=== PATIENT | female | born 1950 | race Caucasian/White ===

== ENCOUNTER 2018-05-10 19:01 | Inpatient (IN) | payer MEDICARE, SELFPAY ==
[2018-05-10] VITALS (11 sets, daily range): BP systolic 118–149; BP diastolic 71–99; PULSE 63–86; RESP 14–16; TEMP 36.6–36.9; O2SAT 96–100; BMI 20.5; BMI 20.8
--- NOTE | 2018-05-10 19:20 | RAD_ITS ---
STUDY: X-RAY CHEST REASON FOR EXAM: Female, 67 years old. Nausea and chest pain TECHNIQUE: Single AP portable view of the chest. COMPARISON: None. FINDINGS: security monitor leads are present. The lungs are clear and expanded. There is no demonstrated pleural abnormality. Normal size heart. Normal mediastinum and aliyah. Normal visualized pulmonary arteries. Normal visualized aortic arch and descending thoracic aorta. Normal visualized thoracic spine. Normal visualized ribs, clavicles, and shoulders. There is no demonstrated abnormality of the visualized soft tissue structures of the upper abdomen. RAD/Chest 1 View (Portable) IMPRESSION: Normal x-ray examination of the chest. Electronically Signed: Peewee Camacho MD at 19:45 EDT , Service support ,
--- NOTE | 2018-05-10 19:20 | EKG12_ITS ---
Test Reason : CP Blood Pressure : / mmHG Vent. Rate : 084 BPM Atrial Rate : 084 BPM P-R Int : 138 ms QRS Dur : 088 ms QT Int : 364 ms P-R-T Axes : 080 061 062 degrees QTc Int : 430 ms Normal sinus rhythm Possible Left atrial enlargement Junctional ST depression, probably normal Borderline ECG Confirmed by BEBA JERNIGAN, MARILOU ([id number]), supervising editor news reel SWAPNIL WHALEN ([id number]) on 05/12/2018 3:29:01 PM Referred By: PETEY/HERMANN Confirmed By:MARILOU YODER MD
[2018-05-10] MEDS: 0.9% Normal Saline 1,000 ML 150 ML IV (19:28)
[2018-05-10 19:37] LABS: Absolute Lymphocyte Count 3.68 X10^3/ul (0.83-4.51); Absolute Neutrophil Count 4.3 X10^3/uL (2.0-7.7); Basophil# 0.02 X10^3/uL; Basophil% 0.2 % (0-1); Eosinophil# 0.21 X10^3/uL; Eosinophils% 2.4 % (0-5); Hematocrit 38.9 % (37-47); Lymphocyte # 3.68 X10^3/ul (4.0); Lymphocyte % 42.3 % (19-41); Mean Corp Hgb Conc 33.4 g/gl (32-36); Mean Corpuscular Hgb 32.3 pg (27.0-32.0); Mean Corpuscular Volume 96.8 fL (81-99); Mean Platelet Vol. 9.1 fl (6.2-12.0); Monocyte% 5.7 % (0-10); Neutrophil # 4.29 X10^3/uL (2.7-7.7); Neutrophil % 49.3 % (47-70); Platelet Count 264 K/mm3 (150-450); RBC Distribution Width CV 12.3 % (11.6-14.6); RBC Distribution Width SD 43.6 fl (35.1-43.9); Red Blood Count 4.02 M/mm3 (4.2-5.4); White Blood Count 8.7 K/mm3 (4.4-11.0)
[2018-05-10 19:38] LABS: POSITIVE COUNT NO; POSITIVE DIFFERENTIAL NO; POSITIVE MORPHOLOGY NO
[2018-05-10 19:47] LABS: Anion Gap 5 (5-15); BUN 19 mg/dL (7-18); Calcium,Total 8.9 mg/dL (8.5-10.1); Chloride 107 mmol/L (98-107); Creatinine, Serum 0.79 mg/dL (0.55-1.02); EST Glomerular Filtration Rate 77 mL/min (>60); Est Glom Filt Rate - Afr Amer 93 mL/min (>60); Estimated Creatinine Clearance 45.16 ml/min; Glucose 123 mg/dL (74-106); Potassium 3.6 mmol/L (3.5-5.1); Sodium Level 141 mmol/L (136-145)
--- NOTE | 2018-05-10 20:03 | ED.DCSUM_ITS ---
- ER Visit Summary Date of Service: 05/10/18 Chief Complaint: Chest pain [] History of Present Illness: The patient is a 67 F [presents the emergency department complaint of chest pain that started 4 days ago. Patient's had intermittent episodes of pain that radiate up into her jaw and into both arms. Patient yesterday had a sensation in her left chest that felt like a pop and then developed discomfort in the right chest as well. She has had some mild dull aching in her right chest that is been continuous since that time. Patient feels like maybe her chest pain is worsened by activity. Past medical history significant for high cholesterol. Patient's never had a heart attack or cardiac stents.] Physical Examination: [HEENT-PERRLA, EOMI. Cranial nerves II through XII grossly intact. TMs clear. Mucous membranes moist. No adenopathy. Cardiovascular-regular rate and rhythm without murmur or ectopy Lungs-clear to auscultation, chest wall stable without crepitus or subcu emphysema Abdomen-normoactive bowel sounds, soft, nontender, no rebound or rigidity, no peritoneal signs. Extremities-intact ?4, normal range of motion, normal pulses, atraumatic] Test Results: [EKG obtained arrival shows sinus rhythm with a ventricular rate of 84 bpm with some nonspecific ST changes noted.] CBC with differential was normal. Chemistries unremarkable. Troponin was less than 0.015. D-dimer was normal at 0.3. Chest x-ray was normal. Emergency Department Course and Treatment: [Patient had taken 2 full doses of aspirin at home. Patient was given sublingual nitro here she is not sure it helped her discomfort much.] Treatment Plan: [Admit for further workup and evaluation] Disposition: [Admit] Impression: [Chest pain-rule out acute coronary syndrome] This note was generated with [employer] dictation software. It may contain incorrect words, spelling, and punctuation that were not noted in review of the chart prior to signing ED Disposition - Plan for ED Patient: Chief Complaint: Chest Pain Referrals: Marv Brownlee DO [Primary Care Provider] -
--- NOTE | 2018-05-10 20:03 | HP.PCM_ITS ---
Problem List (1) Chest pain Status: Acute History of Present Illness Date of Admission: 05/10/18 Chief Complaint: chest pain The patient is a 67 year old [employer] female with a history of hyperlipidemia which is diet controlled. She was admitted with a 1 day history of chest pain. Chest pain was left-sided, sharp and she felt like something had burst in her chest. She had associated lightheadedness and shortness of breath but denied any dizziness or palpitations. On further probing, patient states that she went to [place] for holiday this week and was a 4-1/[address] and for [address]. She was experiencing such chest pain on the right but did not think much of it and actually said that she had had some episodic chest pain even before she went to [place]. However symptoms worsened yesterday and so she decided to come into the hospital. She has a strong family history of DVT and PE with her brother having had a DVT according to after surgery and her mother having had multiple DVTs and PEs which she states was after surgery 2. In the ED, vitals were significant for blood pressure 147/88 on admission with pulse rate of 66, temperature of 97.8 and respiratory rate of 16. She was saturating at 97% on room air. Chest x-ray showed no acute cardiopulmonary process. Dimer was 0.37. Patient has been admitted to be managed for chest pain [] Past Medical History Allergies Bleach (Sodium Hypochlorite) Adverse Reaction (Verified 05/10/18 19:28) Other Home Medications: Ambulatory Orders Medication Instructions Recorded Aspirin [Aspirin EC] 81 mg PO DAILY 05/10/18 Lutein 20 mg PO DAILY 05/10/18 Multivitamin [Daily Multiple 1 each PO DAILY 05/10/18 Vitamin] [place]-3 Fatty Acids/Fish Oil 1 each PO DAILY 05/10/18 [[place] 3 1,000 mg Softgel] Red Yeast Rice 600 mg PO DAILY 05/10/18 Surgical History: no surgical history Psychiatric History: No pertinent psych hx CRIME VICTIM SPECIALIST History: No pertinent CRIME VICTIM SPECIALIST history Smoking Status: Never smoker Alcohol: None - *Family History Maternal History Items: Diabetes, DVT - and PE, Heart Disease, Hypertension Sibling History Items: DVT - brother Paternal History Items: Diabetes Review of Systems Constitutional: Denies: Chills, Fever, Weight Change Eyes: Denies: Blurred vision HEENT: Denies: Head Aches, Sinus Congestion, Sinus Drainage Cardiovascular: Reports: Chest Pain, Palpitations. Denies: Chest Pressure, Chest Tightness, Edema, Orthopnea, Paroxysmal Noc. Dyspnea, Syncope Respiratory: Denies: Cough, Shortness of Breath, Shortness of breath at rest, Sputum production Gastrointestinal: Denies: Abdominal Pain, Nausea, Vomiting Genitourinary: Denies: Dysuria Musculoskeletal: Denies: Joint Pain, Joint Tenderness Skin: Denies: Rash, Wounds Neurological: Denies: Numbness, Tingling, Focal weakness Psychiatric: Denies: Anxiety, Depression, Homicidal Ideations, Suicidal Ideations Hematologic/ Lymphatic: Denies: Easy Bruising, Easy Bleeding VTE Information - Inpt Only VTE Present on Admission: No VTE Mechan Device Prophylaxis: SCD's VTE Pharm Prophylaxis ordered?: Yes Patient Problems: Active and Suspected Problems Chest pain (Acute) - Physical Exam General: Alert, Oriented x3, Cooperative, No apparent distress HEENT: Atraumatic, PERRLA, EOMI, Normocephalic Oral: Moist Mucosa Neck: Supple, No JVD, Negative Carotid Bruits Lungs: Clear to auscultation, Normal air movement, No rhonchi, No wheeze, No rales Cardiovascular: Regular rate, Regular Rhythm, Normal S1, Normal S2, No murmurs Abdomen: Bowel Sounds Present, Soft, Non Tender, Non-Distended, No Hepato- splenomegaly Extremities: No clubbing, No cyanosis, No edema, Capillary Refill Less than 3 Seconds Skin: No rashes, No breakdown Musculoskeletal: No Tenderness to Palpation of Joints or Extremities Lymphatic: No Cervical, Supraclavicular, or Inguinal Adenopathy Neurological: Cranial nerves II-XII grossly intact, Neuro grossly intact, Motor Exam 5/5 strength throughout Psych/Mental Status: Normal Affect, Appropriate, Alert and oriented to time, place, person, mood and affect Vital Signs Temp Pulse Resp BP Pulse Ox 97.8 F 72 16 132/86 H 100 05/10/18 19:03 05/10/18 19:30 05/10/18 19:07 05/10/18 19:30 05/10/18 19:22 Oxygen Delivery Method Room Air Weight: 115 lb 8.505 oz Body Mass Index (BMI) 20.5 Laboratory Tests Past 24 Hrs 05/10/18 05/10/18 05/10/18 19:10 19:10 19:10 WBC 8.7 RBC 4.02 L Hgb 13.0 Hct 38.9 MCV 96.8 MCH 32.3 H MCHC 33.4 RDW 12.3 RDW Differential 43.6 Plt Count 264 MPV 9.1 Immature Gran % (Auto) 0.100 Neut % (Auto) 49.3 Lymph % (Auto) 42.3 H [place] % (Auto) 5.7 Eos % (Auto) 2.4 Baso % (Auto) 0.2 Absolute Neuts (auto) 4.3 Absolute Lymphs (auto) 3.68 Total Counted Not Reportable D-Dimer Quant (PE/DVT) 0.30 Sodium 141 Potassium 3.6 Chloride 107 Carbon Dioxide 29.0 Anion Gap 5 BUN 19 H Creatinine 0.79 Estim Creat Clear Calc 45.16 Est GFR (MDRD) Af Amer 93 Est GFR (MDRD) Non-Af 77 BUN/Creatinine Ratio 24.0 H Glucose 123 H Calcium 8.9 Troponin I < 0.015 Diagnostic Data Chest X-Ray 05/10/18 19:20 IMPRESSION: Normal x-ray examination of the chest. Electronically Signed: Peewee Camacho MD at 19:45 EDT , Service support , Assessment/Plan All Active Problems Chest pain (Acute) 67 y/o female presenting with a complaint of chest pain 1. Atypical cardiac chest pain * initial troponin negative; CXR was n ormal * initial D dimer was negative * however, patient has strong family history of DVT and PE in both mother and brother * WEll's score: * will get CTPE to rule out PE o/a of history of recent long distance travel and strong family history of DVT and PE * aspirin 81mg daily * SL nitroglycerin prn * stress test on Saturday if CTPE is negative * check lipid panel and A1C * 2. Hyperlipidemia: * says she is diet controlled. * check lipid panel * 3. DVT prophylaxis: heparin Code status; DNRCCA * counseled extensively about differences between full code, DNR CCA and DNR CCA. Patient has a document which states that she does not want any life prolonging measures and even states that she does not want antibiotics as well. However upon speaking to patient letting him know that the document that she had implied that she was DNR CC, patient stated that she was open to taking antibiotics but did not want any life prolonging measures such as intubation and CPR. Patient counseled that this indicated that her CODE STATUS was DNR CCA and patient assented to this. Code Visit OBSV E&M: 58328 Initial observation care L2 Procedures: 89329 Advncd Care Plan 30 Min
--- NOTE | 2018-05-10 20:36 | CT_ITS ---
STUDY: CTA CHEST REASON FOR EXAM: Female, 67 years old. RADIATION DOSAGE (If Supplied By Facility): CTDIvol = ( 6.27 ) mGy, DLP = ( 227.70 ) mGycm TECHNIQUE: The examination was performed with the intravenous administration of 75ml ml of Isovue 370 contrast material. Post-processing of the angiographic images was performed, with multiplanar reformation and 3D reconstruction. Individualized dose optimization techniques were used for this CT. COMPARISON: None. FINDINGS: The heart and pericardium are normal. The aorta is normal in caliber, with no aneurysm or dissection. There is no evidence of pulmonary embolus. Pulmonary arteries are unremarkable. There is extensive calcified mediastinal and left hilar adenopathy, consistent with old granulomatous disease. There is no pleural effusion. There is a calcified granuloma in the lingula. There is no pulmonary consolidation. No interstitial or cystic disease. Visualized abdomen is unremarkable. There is no osseous abnormality. CT/CTA Chest W/WO Contrast IMPRESSION: 1. No evidence of pulmonary embolus or aortic dissection. 2. Old granulomatous disease. Electronically Signed: Kirti Veliz MD at 21:41 EDT Tel , Service support ,
--- NOTE | 2018-05-10 22:22 | EKG12_ITS ---
Test Reason : CP Blood Pressure : / mmHG Vent. Rate : 061 BPM Atrial Rate : 061 BPM P-R Int : 118 ms QRS Dur : 082 ms QT Int : 390 ms P-R-T Axes : 065 053 055 degrees QTc Int : 392 ms Normal sinus rhythm Confirmed by SANTOS JERNIGAN, CIRA ([id number]), editor greeting card SWAPNIL WHALEN ([id number]) on 05/15/2018 11:40:37 AM Referred By: ISAAC Confirmed By:CIRA GRAHAM MD
[2018-05-11] VITALS (10 sets, daily range): BP systolic 113–119; BP diastolic 57–74; PULSE 59–86; RESP 14–16; TEMP 36.6–36.8; O2SAT 95–98
[2018-05-11] MEDS: 0.9% Normal Saline 1,000 ML 150 ML IV (01:02)
[2018-05-11 03:12] LABS: Hemoglobin A1c 5.2 % (4.2-6.3)
[2018-05-11 06:22] LABS: Absolute Lymphocyte Count 2.31 X10^3/ul (0.83-4.51); Absolute Neutrophil Count 2.7 X10^3/uL (2.0-7.7); Basophil# 0.04 X10^3/uL; Basophil% 0.7 % (0-1); Eosinophil# 0.27 X10^3/uL; Eosinophils% 4.6 % (0-5); Hematocrit 34.5 % (37-47); Hemoglobin 11.4 g/dl (12.0-15.0); Lymphocyte # 2.31 X10^3/ul (4.0); Lymphocyte % 39.8 % (19-41); Mean Corpuscular Hgb 32.2 pg (27.0-32.0); Mean Corpuscular Volume 97.5 fL (81-99); Monocyte# 0.46 X10^3/uL; Monocyte% 7.9 % (0-10); Neutrophil # 2.73 X10^3/uL (2.7-7.7); Platelet Count 231 K/mm3 (150-450); RBC Distribution Width CV 12.1 % (11.6-14.6); Red Blood Count 3.54 M/mm3 (4.2-5.4); White Blood Count 5.8 K/mm3 (4.4-11.0)
[2018-05-11 06:34] LABS: POSITIVE COUNT NO; POSITIVE DIFFERENTIAL NO; POSITIVE MORPHOLOGY NO
[2018-05-11 06:54] LABS: Cholesterol 179 mg/dL (200); High Density Lipoprotein 58 mg/dL; Triglycerides 66 mg/dL; Very Low Density Lipoprotein 13 mg/dL (5-40)
[2018-05-11 06:57] LABS: Anion Gap 8 (5-15); BUN 15 mg/dL (7-18); Calcium,Total 8.5 mg/dL (8.5-10.1); Chloride 111 mmol/L (98-107); Creatinine, Serum 0.52 mg/dL (0.55-1.02); EST Glomerular Filtration Rate 126 mL/min (>60); Est Glom Filt Rate - Afr Amer 152 mL/min (>60); Estimated Creatinine Clearance 45.16 ml/min; Glucose 85 mg/dL (74-106); Potassium 3.5 mmol/L (3.5-5.1); Sodium Level 145 mmol/L (136-145)
[2018-05-11] MEDS: Aspirin 81 MG TAB.CHEW PO (08:38)
[2018-05-11] MEDS: Enoxaparin 40 MG/0.4 ML Syringe SC (08:38)
--- NOTE | 2018-05-11 13:06 | PN_ITS ---
<Kate Mcnally - Last Filed: 05/11/18 13:06> Patient Problems: Active and Suspected Problems Chest pain (Acute) Subjective: Patient seen and examined. Ambulating in room. Complains of continued sporadic chest pain which resolves on its own. Patient reports this is not related to exertion. Denies associated symptoms including shortness of breath, palpitations, dizziness. - Physical Exam General: Alert, Oriented x3, Cooperative, No apparent distress HEENT: Atraumatic, PERRLA, EOMI, Normocephalic Neck: Supple, No JVD, Negative Carotid Bruits Lungs: Clear to auscultation, Normal air movement Cardiovascular: Regular rate, Regular Rhythm, Normal S1, Normal S2, No murmurs Abdomen: Bowel Sounds Present, Soft, Non Tender, Non-Distended Extremities: No clubbing, No cyanosis, No edema, Capillary Refill Less than 3 Seconds Skin: No rashes, No breakdown Musculoskeletal: No Tenderness to Palpation of Joints or Extremities Neurological: Cranial nerves II-XII grossly intact, Neuro grossly intact Psych/Mental Status: Normal Affect, Appropriate Vital Signs Temp Pulse Resp BP Pulse Ox 98.3 F 86 16 114/71 98 05/11/18 08:31 05/11/18 11:00 05/11/18 08:31 05/11/18 08:31 05/11/18 08:31 Oxygen Delivery Method Room Air Weight: 117 lb 8.102 oz Body Mass Index (BMI) 20.8 Intake and Output for Last 24 Hours 05/09/18 05/10/18 05/11/18 23:59 23:59 23:59 Intake Total 1144 / 1144 Balance 1144 / 1144 Laboratory Tests Past 24 Hrs 05/10/18 05/10/18 05/10/18 19:10 19:10 19:10 WBC 8.7 RBC 4.02 L Hgb 13.0 Hct 38.9 MCV 96.8 MCH 32.3 H MCHC 33.4 RDW 12.3 RDW Differential 43.6 Plt Count 264 MPV 9.1 Immature Gran % (Auto) 0.100 Neut % (Auto) 49.3 Lymph % (Auto) 42.3 H Stevens % (Auto) 5.7 Eos % (Auto) 2.4 Baso % (Auto) 0.2 Absolute Neuts (auto) 4.3 Absolute Lymphs (auto) 3.68 Total Counted Not Reportable D-Dimer Quant (PE/DVT) 0.30 Sodium 141 Potassium 3.6 Chloride 107 Carbon Dioxide 29.0 Anion Gap 5 BUN 19 H Creatinine 0.79 Estim Creat Clear Calc 45.16 Est GFR (MDRD) Af Amer 93 Est GFR (MDRD) Non-Af 77 BUN/Creatinine Ratio 24.0 H Glucose 123 H Hemoglobin A1c Calcium 8.9 Troponin I < 0.015 Triglycerides Cholesterol LDL Cholesterol VLDL Cholesterol HDL Cholesterol 05/10/18 05/10/18 05/11/18 19:10 22:35 01:06 WBC RBC Hgb Hct MCV MCH MCHC RDW RDW Differential Plt Count MPV Immature Gran % (Auto) Neut % (Auto) Lymph % (Auto) Stevens % (Auto) Eos % (Auto) Baso % (Auto) Absolute Neuts (auto) Absolute Lymphs (auto) Total Counted D-Dimer Quant (PE/DVT) Sodium Potassium Chloride Carbon Dioxide Anion Gap BUN Creatinine Estim Creat Clear Calc Est GFR (MDRD) Af Amer Est GFR (MDRD) Non-Af BUN/Creatinine Ratio Glucose Hemoglobin A1c 5.2 Calcium Troponin I < 0.015 < 0.015 Triglycerides Cholesterol LDL Cholesterol VLDL Cholesterol HDL Cholesterol 05/11/18 05/11/18 05/11/18 06:00 06:00 06:00 WBC 5.8 RBC 3.54 L Hgb 11.4 L Hct 34.5 L MCV 97.5 MCH 32.2 H MCHC 33.0 RDW 12.1 RDW Differential 41.0 Plt Count 231 MPV 9.0 Immature Gran % (Auto) 0.000 Neut % (Auto) 47.0 Lymph % (Auto) 39.8 Stevens % (Auto) 7.9 Eos % (Auto) 4.6 Baso % (Auto) 0.7 Absolute Neuts (auto) 2.7 Absolute Lymphs (auto) 2.31 Total Counted Not Reportable D-Dimer Quant (PE/DVT) Sodium 145 Potassium 3.5 Chloride 111 H Carbon Dioxide 26.0 Anion Gap 8 BUN 15 Creatinine 0.52 L Estim Creat Clear Calc 45.16 Est GFR (MDRD) Af Amer 152 Est GFR (MDRD) Non-Af 126 BUN/Creatinine Ratio 29.0 H Glucose 85 Hemoglobin A1c Calcium 8.5 Troponin I Triglycerides 66 Cholesterol 179 LDL Cholesterol 108 VLDL Cholesterol 13 HDL Cholesterol 58 Medical Necessity - Tobacco Use Smoking Status: Never smoker Assessment/Plan All Active Problems Chest pain (Acute) 1. Atypical chest pain-troponin negative. EKG without ST-T changes. Stress test scheduled for morning. Continue aspirin. D-dimer within normal limits. Chest CTA showed no evidence of pulmonary embolism or aortic dissection. 2. Hyperlipidemia- FLP within normal limits. Continue omega 3 supplementation at discharge. DVT prophylaxis-heparin subcu per This patient was seen by OLYA Heller under the supervision of Dr. Jay. <Mike Jay - Last Filed: 05/11/18 16:23> Subjective: Seen and examined. Very pleasant patient. She denies history of previous cardiopulmonary disease. Denies DC, arrhythmia or heart failure. Patient said she had childhood history murmur secondary to possible rheumatic heart disease but grew out of it - Physical Exam General: Alert, Oriented x3, Cooperative HEENT: Atraumatic, PERRLA, EOMI, Normocephalic Neck: Supple, No JVD, Negative Carotid Bruits Lungs: Clear to auscultation, Normal air movement Cardiovascular: Regular rate, Regular Rhythm, Normal S1, Normal S2, No murmurs Abdomen: Bowel Sounds Present, Soft, Non Tender Extremities: No edema, Capillary Refill Less than 3 Seconds Skin: No rashes, No breakdown Musculoskeletal: No Tenderness to Palpation of Joints or Extremities Neurological: Cranial nerves II-XII grossly intact Psych/Mental Status: Normal Affect, Appropriate Vital Signs Temp Pulse Resp BP Pulse Ox 97.9 F 61 16 119/69 98 05/11/18 15:30 05/11/18 15:30 05/11/18 15:30 05/11/18 15:30 05/11/18 15:30 Oxygen Delivery Method Room Air Weight: 117 lb 8.102 oz Body Mass Index (BMI) 20.8 Intake and Output for Last 24 Hours 05/09/18 05/10/18 05/11/18 23:59 23:59 23:59 Intake Total 1144 / 1144 Balance 1144 / 1144 Laboratory Tests Past 24 Hrs 05/10/18 05/10/18 05/10/18 19:10 19:10 19:10 WBC 8.7 RBC 4.02 L Hgb 13.0 Hct 38.9 MCV 96.8 MCH 32.3 H MCHC 33.4 RDW 12.3 RDW Differential 43.6 Plt Count 264 MPV 9.1 Immature Gran % (Auto) 0.100 Neut % (Auto) 49.3 Lymph % (Auto) 42.3 H Stevens % (Auto) 5.7 Eos % (Auto) 2.4 Baso % (Auto) 0.2 Absolute Neuts (auto) 4.3 Absolute Lymphs (auto) 3.68 Total Counted Not Reportable D-Dimer Quant (PE/DVT) 0.30 Sodium 141 Potassium 3.6 Chloride 107 Carbon Dioxide 29.0 Anion Gap 5 BUN 19 H Creatinine 0.79 Estim Creat Clear Calc 45.16 Est GFR (MDRD) Af Amer 93 Est GFR (MDRD) Non-Af 77 BUN/Creatinine Ratio 24.0 H Glucose 123 H Hemoglobin A1c Calcium 8.9 Troponin I < 0.015 Triglycerides Cholesterol LDL Cholesterol VLDL Cholesterol HDL Cholesterol 05/10/18 05/10/18 05/11/18 19:10 22:35 01:06 WBC RBC Hgb Hct MCV MCH MCHC RDW RDW Differential Plt Count MPV Immature Gran % (Auto) Neut % (Auto) Lymph % (Auto) Stevens % (Auto) Eos % (Auto) Baso % (Auto) Absolute Neuts (auto) Absolute Lymphs (auto) Total Counted D-Dimer Quant (PE/DVT) Sodium Potassium Chloride Carbon Dioxide Anion Gap BUN Creatinine Estim Creat Clear Calc Est GFR (MDRD) Af Amer Est GFR (MDRD) Non-Af BUN/Creatinine Ratio Glucose Hemoglobin A1c 5.2 Calcium Troponin I < 0.015 < 0.015 Triglycerides Cholesterol LDL Cholesterol VLDL Cholesterol HDL Cholesterol 05/11/18 05/11/18 05/11/18 06:00 06:00 06:00 WBC 5.8 RBC 3.54 L Hgb 11.4 L Hct 34.5 L MCV 97.5 MCH 32.2 H MCHC 33.0 RDW 12.1 RDW Differential 41.0 Plt Count 231 MPV 9.0 Immature Gran % (Auto) 0.000 Neut % (Auto) 47.0 Lymph % (Auto) 39.8 Stevens % (Auto) 7.9 Eos % (Auto) 4.6 Baso % (Auto) 0.7 Absolute Neuts (auto) 2.7 Absolute Lymphs (auto) 2.31 Total Counted Not Reportable D-Dimer Quant (PE/DVT) Sodium 145 Potassium 3.5 Chloride 111 H Carbon Dioxide 26.0 Anion Gap 8 BUN 15 Creatinine 0.52 L Estim Creat Clear Calc 45.16 Est GFR (MDRD) Af Amer 152 Est GFR (MDRD) Non-Af 126 BUN/Creatinine Ratio 29.0 H Glucose 85 Hemoglobin A1c Calcium 8.5 Troponin I Triglycerides 66 Cholesterol 179 LDL Cholesterol 108 VLDL Cholesterol 13 HDL Cholesterol 58 Assessment/Plan This patient was seen in conjunction with [facility]. I have independently interviewed and examined the patient and reviewed pertinent history, examination findings, laboratory and plan of management. I have reviewed the note and agree with the documented findings with the few additional points. In brief, patient is admitted for atypical chest pain. Initial lab evaluation, EKG and imaging testing including CTA negative for PE, aortic dissection or other significant cause of chest pain. Patient want to do treadmill nuclear stress test and is scheduled for tomorrow. I have discussed my assessment with Kate APARICIO and orders have been reviewed. Code Visit OBSV E&M: 40730 Subsequent observation care L2
[2018-05-12 03:00] VITALS: PULSE 66
[2018-05-12 03:30] VITALS: BP 109/70; PULSE 60; RESP 14; TEMP 36.7; O2SAT 96
[2018-05-12 03:56] LABS: International Normalized Ratio 1.2; Prothrombin Time (Protime)PT. 14.7 SECONDS (11.7-14.9)
[2018-05-12 03:57] LABS: Partial Thromboplast Time 32.1 Seconds (24.1-36.2)
[2018-05-12 04:08] LABS: Hemoglobin 12.1 g/dl (12.0-15.0); Mean Corp Hgb Conc 33.6 g/gl (32-36); Mean Corpuscular Hgb 32.3 pg (27.0-32.0); Mean Platelet Vol. 9.2 fl (6.2-12.0); Platelet Count 223 K/mm3 (150-450); RBC Distribution Width CV 12.4 % (11.6-14.6); RBC Distribution Width SD 43.2 fl (35.1-43.9); Red Blood Count 3.75 M/mm3 (4.2-5.4); White Blood Count 5.5 K/mm3 (4.4-11.0)
[2018-05-12 04:15] LABS: Scan Indicated on CBC? Y/N NO
[2018-05-12 04:23] LABS: Anion Gap 8 (5-15); BUN 18 mg/dL (7-18); BUN/Creat Ratio 30.3 RATIO (10-20); Calcium,Total 8.9 mg/dL (8.5-10.1); Chloride 109 mmol/L (98-107); EST Glomerular Filtration Rate 107 mL/min (>60); Est Glom Filt Rate - Afr Amer 129 mL/min (>60); Estimated Creatinine Clearance 45.16 ml/min; Glucose 89 mg/dL (74-106); Potassium 3.6 mmol/L (3.5-5.1); Sodium Level 144 mmol/L (136-145)
--- NOTE | 2018-05-12 05:55 | EKG12_ITS ---
Test Reason : AM EKG Blood Pressure : / mmHG Vent. Rate : 063 BPM Atrial Rate : 063 BPM P-R Int : 138 ms QRS Dur : 094 ms QT Int : 392 ms P-R-T Axes : 080 057 060 degrees QTc Int : 401 ms Normal sinus rhythm Normal ECG Confirmed by SANTOS JERNIGAN, CIRA ([id number]), index editor SWAPNIL WHALEN ([id number]) on 05/15/2018 11:37:33 AM Referred By: NICOLE Confirmed By:CIRA GRAHAM MD
[2018-05-12] MEDS: Aspirin 81 MG TAB.CHEW PO (06:00)
[2018-05-12 09:29] VITALS: BP 115/61; PULSE 63; RESP 16; TEMP 36.8; O2SAT 98
--- NOTE | 2018-05-12 10:20 | STRESSREP_ITS ---
Stress Test Report Exercise myocardial perfusion stress test. 67-year-old lady with a history of chest pain. Stress protocol: Resting EKG demonstrates normal sinus rhythm with a rate of 69 bpm normal intervals are noted. The patient exercised according to regular Irvin protocol for total duration of 7 minutes the maximum heart rate attained was 146 bpm w hich was 95% maximum predicted heart rate the maximum workload was 8.5 metabolic equivalents. At rest there were no ST or T wave changes noted suggest ischemia at peak exercise upsloping ST changes only were noted with no meet the criteria for ischemia. No clinical angina was noted no arrhythmias were noted the resting blood pressure is 130/92 with a peak blood pressure 160/90 mmHg. Myocardial perfusion protocol. 11.1 mCi of technetium 99m sestamibi was injected at rest. Patient exercised according to regular Irvin protocol for 7 minutes. At peak exercise 33.7 mCi of technetium 99m sestamibi was injected stress images were obtained stress and rest images were reconstructed and compared in the short axis vertical long horizontal long axis. Gated images were also obtained Perfusion SPECT analysis: Review of the stress images demonstrate normal uptake of tracer noted in all areas of the myocardium. The resting images similarly demonstrate normal uptake of tracer noted in all areas of the myocardium. No areas of reversibility are noted suggest ischemia. Gated SPECT analysis: The gated ejection fraction is noted to be 89%. Conclusion: Normal exercise myocardial perfusion stress test at a moderate workload. Good functional capacity. Preserved ejection fraction.
--- NOTE | 2018-05-12 10:30 | PCM.DC ---
- Discharge Diagnoses Current Active Problems: Current Active and Chronic Problems Chest pain (Acute) You will use the following diet at home:: No restrictions Discharge Activity: Return to Normal Activity Call your doctor if you observe: Shortness of breath, Dizziness, Fainting spells, Chest pain Allergies/Adverse Reactions: Allergies Bleach (Sodium Hypochlorite) Adverse Reaction (Verified 05/10/18 19:28) Other Medications to take at Discharge Aspirin [Aspirin EC] 81 mg PO DAILY 05/10/18 Lutein 20 mg PO DAILY 05/10/18 Multivitamin [Daily Multiple Vitamin] 1 each PO DAILY 05/10/18 [place]-3 Fatty Acids/Fish Oil [[place] 3 1,000 mg Softgel] 1 each PO DAILY 05/10/18 Red Yeast Rice 600 mg PO DAILY 05/10/18 Primary Care Physician: Marv Brownlee DO [Primary Care Provider] - Please follow up with your Primary Care Physician in: 1 Week Test Results: Test results from this visit will be discussed in further detail at your follow-up appointment, if applicable. Proposed Discharge Date: 05/12/18
--- NOTE | 2018-05-12 10:31 | PCM.DC.SUM ---
<Kate Mcnally - Last Filed: 05/12/18 10:36> Discharge Date and Diagnosis Date of Admission: 05/10/18 Date of Discharge: 05/12/18 - Primary Discharge Diagnosis Active and Suspected Problems 1. Noncardiac chest pain - Secondary Discharge Diagnosis Hyperlipidemia Hospital Course and Treatment Imaging Results: Diagnostic Data Chest X-Ray 05/10/18 19:20 IMPRESSION: Normal x-ray examination of the chest. Electronically Signed: Peewee Camacho MD at 19:45 EDT , Service support , Chest CTA 05/10/18 20:36 IMPRESSION: 1. No evidence of pulmonary embolus or aortic dissection. 2. Old granulomatous disease. Electronically Signed: Kirti Veliz MD at 21:41 EDT Tel , Service support , Operations: None Procedures: Stress test Summary of Care Provided: The patient is a 67 year old F admitted 05/10/2018 due to chest pain. 1. Atypical chest pain-ACS ruled out. Troponin negative. EKG without ST-T changes. Stress test negative for ischemia. Continue aspirin. D-dimer within normal limits. Chest CTA showed no evidence of pulmonary embolism or aortic dissection. Follow-up with primary care physician in 1 week. 2. Hyperlipidemia- FLP within normal limits. Continue omega 3 supplementation at discharge. Patient reports diet controlled. General: Alert, Oriented x3, Cooperative, No apparent distress HEENT: Atraumatic, PERRLA, EOMI, Normocephalic Neck: Supple, No JVD, Negative Carotid Bruits Lungs: Clear to auscultation, Normal air movement Cardiovascular: Regular rate, Regular Rhythm, Normal S1, Normal S2, No murmurs Abdomen: Bowel Sounds Present, Soft, Non Tender, Non-Distended Extremities: No clubbing, No cyanosis, No edema, Capillary Refill Less than 3 Seconds Skin: No rashes, No breakdown Musculoskeletal: No Tenderness to Palpation of Joints or Extremities Neurological: Cranial nerves II-XII grossly intact, Neuro grossly intact Psych/Mental Status: Normal Affect, Appropriate Patient seen exam prior to discharge. Physical assessment as noted above. Patient stable for discharge home with follow-up recommendations as noted above. This patient was seen by OLYA Heller under the supervision of Dr. Jay. - Physical Exam Vital Signs Temp Pulse Resp BP Pulse Ox 98.2 F 63 16 115/61 98 05/12/18 09:29 05/12/18 09:29 05/12/18 09:29 05/12/18 09:29 05/12/18 09:29 Oxygen Delivery Method Room Air Weight: 117 lb 8.102 oz Body Mass Index (BMI) 20.8 Intake and Output for Last 24 Hours 05/10/18 05/11/18 05/12/18 23:59 23:59 23:59 Intake Total 1144 / 1144 Balance 1144 / 1144 Laboratory Tests Past 24 Hrs 05/12/18 05/12/18 05/12/18 03:30 03:30 03:30 WBC 5.5 RBC 3.75 L Hgb 12.1 Hct 36.0 L MCV 96.0 MCH 32.3 H MCHC 33.6 RDW 12.4 RDW Differential 43.2 Plt Count 223 MPV 9.2 PT 14.7 INR 1.2 APTT 32.1 Sodium 144 Potassium 3.6 Chloride 109 H Carbon Dioxide 27.0 Anion Gap 8 BUN 18 Creatinine 0.60 Estim Creat Clear Calc 45.16 Est GFR (MDRD) Af Amer 129 Est GFR (MDRD) Non-Af 107 BUN/Creatinine Ratio 30.3 H Glucose 89 Calcium 8.9 Discharge Diet: No Restrictions Discharge Activity: Return to Normal Activity Call your doctor if you observe: Shortness of breath, Dizziness, Fainting spells, Chest pain Home Medications: Medications to take at Discharge Aspirin [Aspirin EC] 81 mg PO DAILY 05/10/18 Lutein 20 mg PO DAILY 05/10/18 Multivitamin [Daily Multiple Vitamin] 1 each PO DAILY 05/10/18 Larkspur-3 Fatty Acids/Fish Oil [[place] 3 1,000 mg Softgel] 1 each PO DAILY 05/10/18 Red Yeast Rice 600 mg PO DAILY 05/10/18 Primary Care Physician: Marv Brownlee DO [Primary Care Provider] - Please follow up with your Primary Care Physician in: 1 Week Disposition: Home Minutes spent on discharge:: 35 Patient Condition:: Stable Medical Necessity - Tobacco Use Smoking Status: Never smoker Meaningful Use Info Meaningful Use Diagnoses (Choose all that apply): None applicable <Mike Jay - Last Filed: 05/12/18 15:05> Hospital Course and Treatment Summary of Care Provided: [] This patient was seen in conjunction with Kate APARICIO. I have independently interviewed and examined the patient and reviewed pertinent history, examination findings, laboratory and plan of management. I have reviewed the note and agree with the documented findings with the few additional points. In brief, patient is admitted for atypical chest pain. Initial lab evaluation, EKG and imaging testing including CTA negative for PE, aortic dissection or other significant cause of chest pain. Patient had nuclear stress test which was negative for stress-induced ischemia. Discharge medication reconciliation done. Follow-up instructions completed. I have discussed my assessment with Kate APARICIO and orders have been reviewed. - Physical Exam General: Alert, Oriented x3, Cooperative HEENT: Atraumatic, PERRLA, EOMI, Normocephalic Neck: Supple, No JVD, Negative Carotid Bruits Lungs: Clear to auscultation, Normal air movement Cardiovascular: Regular rate, Regular Rhythm, Normal S1, Normal S2, No murmurs Abdomen: Bowel Sounds Present, Soft, Non Tender, Non-Distended Extremities: No edema, Capillary Refill Less than 3 Seconds Skin: No rashes, No breakdown Musculoskeletal: No Tenderness to Palpation of Joints or Extremities Neurological: Cranial nerves II-XII grossly intact, Neuro grossly intact Psych/Mental Status: Normal Affect, Appropriate Vital Signs Temp Pulse Resp BP Pulse Ox 98.2 F 63 16 115/61 98 05/12/18 09:29 05/12/18 09:29 05/12/18 09:29 05/12/18 09:29 05/12/18 09:29 Oxygen Delivery Method Room Air Weight: 117 lb 8.102 oz Body Mass Index (BMI) 20.8 Intake and Output for Last 24 Hours 05/10/18 05/11/18 05/12/18 23:59 23:59 23:59 Intake Total 1144 / 1144 Balance 1144 / 1144 Laboratory Tests Past 24 Hrs 05/12/18 05/12/18 05/12/18 03:30 03:30 03:30 WBC 5.5 RBC 3.75 L Hgb 12.1 Hct 36.0 L MCV 96.0 MCH 32.3 H MCHC 33.6 RDW 12.4 RDW Differential 43.2 Plt Count 223 MPV 9.2 PT 14.7 INR 1.2 APTT 32.1 Sodium 144 Potassium 3.6 Chloride 109 H Carbon Dioxide 27.0 Anion Gap 8 BUN 18 Creatinine 0.60 Estim Creat Clear Calc 45.16 Est GFR (MDRD) Af Amer 129 Est GFR (MDRD) Non-Af 107 BUN/Creatinine Ratio 30.3 H Glucose 89 Calcium 8.9 Code Visit OBSV E&M: 35238 Observation care discharge
--- NOTE | 2018-05-12 10:36 | DS.PCM_ITS ---
<Kate Mcnally - Last Filed: 05/12/18 10:36> Discharge Date and Diagnosis Date of Admission: 05/10/18 Date of Discharge: 05/12/18 - Primary Discharge Diagnosis Active and Suspected Problems 1. Noncardiac chest pain - Secondary Discharge Diagnosis Hyperlipidemia Hospital Course and Treatment Imaging Results: Diagnostic Data Chest X-Ray 05/10/18 19:20 IMPRESSION: Normal x-ray examination of the chest. Electronically Signed: Peewee Camacoh MD at 19:45 EDT , Service support , Chest CTA 05/10/18 20:36 IMPRESSION: 1. No evidence of pulmonary embolus or aortic dissection. 2. Old granulomatous disease. Electronically Signed: Kirti Veliz MD at 21:41 EDT Tel , Service support , Operations: None Procedures: Stress test Summary of Care Provided: The patient is a 67 year old F admitted 05/10/2018 due to chest pain. 1. Atypical chest pain-ACS ruled out. Troponin negative. EKG without ST-T mena ges. Stress test negative for ischemia. Continue aspirin. D-dimer within normal limits. Chest CTA showed no evidence of pulmonary embolism or aortic dissection. Follow-up with primary care physician in 1 week. 2. Hyperlipidemia- FLP within normal limits. Continue omega 3 supplementation at discharge. Patient reports diet controlled. General: Alert, Oriented x3, Cooperative, No apparent distress HEENT: Atraumatic, PERRLA, EOMI, Normocephalic Neck: Supple, No JVD, Negative Carotid Bruits Lungs: Clear to auscultation, Normal air movement Cardiovascular: Regular rate, Regular Rhythm, Normal S1, Normal S2, No murmurs Abdomen: Bowel Sounds Present, Soft, Non Tender, Non-Distended Extremities: No clubbing, No cyanosis, No edema, Capillary Refill Less than 3 Seconds Skin: No rashes, No breakdown Musculoskeletal: No Tenderness to Palpation of Joints or Extremities Neurological: Cranial nerves II-XII grossly intact, Neuro grossly intact Psych/Mental Status: Normal Affect, Appropriate Patient seen exam prior to discharge. Physical assessment as noted above. Patient stable for discharge home with follow-up recommendations as noted above. This patient was seen by OLYA Heller under the supervision of Dr. Jay. - Physical Exam Vital Signs Temp Pulse Resp BP Pulse Ox 98.2 F 63 16 115/61 98 05/12/18 09:29 05/12/18 09:29 05/12/18 09:29 05/12/18 09:29 05/12/18 09:29 Oxygen Delivery Method Room Air Weight: 117 lb 8.102 oz Body Mass Index (BMI) 20.8 Intake and Output for Last 24 Hours 05/10/18 05/11/18 05/12/18 23:59 23:59 23:59 Intake Total 1144 / 1144 Balance 1144 / 1144 Laboratory Tests Past 24 Hrs 05/12/18 05/12/18 05/12/18 03:30 03:30 03:30 WBC 5.5 RBC 3.75 L Hgb 12.1 Hct 36.0 L MCV 96.0 MCH 32.3 H MCHC 33.6 RDW 12.4 RDW Differential 43.2 Plt Count 223 MPV 9.2 PT 14.7 INR 1.2 APTT 32.1 Sodium 144 Potassium 3.6 Chloride 109 H Carbon Dioxide 27.0 Anion Gap 8 BUN 18 Creatinine 0.60 Estim Creat Clear Calc 45.16 Est GFR (MDRD) Af Amer 129 Est GFR (MDRD) Non-Af 107 BUN/Creatinine Ratio 30.3 H Glucose 89 Calcium 8.9 Discharge Diet: No Restrictions Discharge Activity: Return to Normal Activity Call your doctor if you observe: Shortness of breath, Dizziness, Fainting spells, Chest pain Home Medications: Medications to take at Discharge Aspirin [Aspirin EC] 81 mg PO DAILY 05/10/18 Lutein 20 mg PO DAILY 05/10/18 Multivitamin [Daily Multiple Vitamin] 1 each PO DAILY 05/10/18 Maynard-3 Fatty Acids/Fish Oil [[place]nard 3 1,000 mg Softgel] 1 each PO DAILY 05/10/18 Red Yeast Rice 600 mg PO DAILY 05/10/18 Primary Care Physician: Marv Brownlee DO [Primary Care Provider] - Please follow up with your Primary Care Physician in: 1 Week Disposition: Home Minutes spent on discharge:: 35 Patient Condition:: Stable Medical Necessity - Tobacco Use Smoking Status: Never smoker Meaningful Use Info Meaningful Use Diagnoses (Choose all that apply): None applicable <Mike Jay - Last Filed: 05/12/18 15:05> Hospital Course and Treatment Summary of Care Provided: [] This patient was seen in conjunction with Kate APARICIO. I have independently interviewed and examined the patient and reviewed pertinent history, examination findings, laboratory and plan of management. I have reviewed the note and agree with the documented findings with the few additional points. In brief, patient is admitted for atypical chest pain. Initial lab evaluation, EKG and imaging testing including CTA negative for PE, aortic dissection or other significant cause of chest pain. Patient had nuclear stress test which was negative for stress-induced ischemia. Discharge medication reconciliation done. Follow-up instructions completed. I have discussed my assessment with Kate APARICIO and orders have been reviewed. - Physical Exam General: Alert, Oriented x3, Cooperative HEENT: Atraumatic, PERRLA, EOMI, Normocephalic Neck: Supple, No JVD, Negative Carotid Bruits Lungs: Clear to auscultation, Normal air movement Cardiovascular: Regular rate, Regular Rhythm, Normal S1, Normal S2, No murmurs Abdomen: Bowel Sounds Present, Soft, Non Tender, Non-Distended Extremities: No edema, Capillary Refill Less than 3 Seconds Skin: No rashes, No breakdown Musculoskeletal: No Tenderness to Palpation of Joints or Extremities Neurological: Cranial nerves II-XII grossly intact, Neuro grossly intact Psych/Mental Status: Normal Affect, Appropriate Vital Signs Temp Pulse Resp BP Pulse Ox 98.2 F 63 16 115/61 98 05/12/18 09:29 05/12/18 09:29 05/12/18 09:29 05/12/18 09:29 05/12/18 09:29 Oxygen Delivery Method Room Air Weight: 117 lb 8.102 oz Body Mass Index (BMI) 20.8 Intake and Output for Last 24 Hours 05/10/18 05/11/18 05/12/18 23:59 23:59 23:59 Intake Total 1144 / 1144 Balance 1144 / 1144 Laboratory Tests Past 24 Hrs 05/12/18 05/12/18 05/12/18 03:30 03:30 03:30 WBC 5.5 RBC 3.75 L Hgb 12.1 Hct 36.0 L MCV 96.0 MCH 32.3 H MCHC 33.6 RDW 12.4 RDW Differential 43.2 Plt Count 223 MPV 9.2 PT 14.7 INR 1.2 APTT 32.1 Sodium 144 Potassium 3.6 Chloride 109 H Carbon Dioxide 27.0 Anion Gap 8 BUN 18 Creatinine 0.60 Estim Creat Clear Calc 45.16 Est GFR (MDRD) Af Amer 129 Est GFR (MDRD) Non-Af 107 BUN/Creatinine Ratio 30.3 H Glucose 89 Calcium 8.9 Code Visit OBSV E&M: 96454 Observation care discharge
--- NOTE | 2018-05-12 10:42 | PHA.DC.MR ---
Pharmacy Service has performed discharge medication reconciliation for this patient. The patient's discharge medication list was reviewed for discrepancies and discrepancies were resolved.
--- NOTE | 2018-05-12 10:43 | CASEMGMT ---
NATHANIEL BEARDEN assessment: Face to Face with patient for initial transition planning/care coordination assessment. NATHANIEL BEARDEN introduced self and role at [facility], pt voices understanding and consents to assessment at this time. Pt is sitting up on side of bed in no distress at this time. Pt is A/O x4 at this time and answers all questions appropriately at this time. Care providers, pharmacy, and demographics verified/updated at this time. PCP: [facility] Specialists: Pt states has a skin cancer physician in [place] where she lives for part of the year. Preferred Pharmacy: [facility] Insurance: [facility] A/B Prescription Benefit: Pt states has no Rx insurance but is not on any meds. Living Will/HPOA: Pt states has LW/HPOA and sister, Hoa, is HPOA but they are not currently on file at [facility] at this time. Pt does have copy with her but states she needs to have them updated and would like to wait to have them placed on chart. LNOK: sister Benson Living Arrangements: Pt states lives sisterHoa, in [place] for the summer and then they go to [place] every winter. Pt states no concerns at either home at this time. Transportation: Pt states no transportation concerns at this time. DME/HHC: Pt states has no DME or need for any at this time. Pt states no hx of HHC or SNF. Pt states no concerns with going home at time of discharge. Pt states does not smoke or drink ETOH. CM to follow for any further discharge planning/needs. Advised pt to ask for CM if any further questions/concerns/needs arise, voices understanding. Plan: [place] NATHANIEL BEARDEN
== END 2018-05-12 11:30 | disposition home or self-care (01) | DRG 313 ==
LOC: ED 19:55 → PCU 20:27
PROVIDERS: Admitting Provider Student in an Organized Health Care Education/Training Program; Emergency Provider Emergency Medicine; Family Provider Family Medicine; PCP Family Medicine; Visit Provider Internal Medicine
DX: R07.89 Other chest pain (principal); E78.5 Hyperlipidemia, unspecified
CPT/HCPCS: 36415; 71045; 71275; 78452; 80048; 80061; 83036; 84484; 85025; 85027; 85379; 85610; 85730; 93005; 93017; 99285; A9500; J7030; Q9967; A4216

== ENCOUNTER 2020-03-30 07:52 | Day surgery (SDC) | payer MEDICARE, SELFPAY ==
[2020-03-14 08:46] VITALS: BMI 20.8
[2020-03-30 08:27] VITALS: BP 128/74; PULSE 46; RESP 16; TEMP 36.9; O2SAT 98; BMI 20.2
[2020-03-30] MEDS: Lactated Ringers 1,000 ML 100 ML IV (08:33)
[2020-03-30 09:19] VITALS: BP 128/74; BP 99/60; PULSE 69; RESP 15; TEMP 37; O2SAT 99
--- NOTE | 2020-03-30 09:19 | OP.COLON_ITS ---
Patient Name: Dyan Rose Procedure Date: 03/30/2020 8:51 AM Date of : 1950 Age: 69 Procedure: Colonoscopy Indications: Screening for colorectal malignant neoplasm Providers: Raul Babcock MD Referring MD: Marv Brownlee Medicines: See the Anesthesia note for documentation of the administered medications Patient Profile: This is a 69 year old female. Refer to note in patient chart for documentation of history and physical. Last Colonoscopy: none. The patient's first colonoscopy is today. Complications: No immediate complications. Procedure: Pre-Anesthesia Assessment: - Prior to the procedure, a History and Physical was performed, and patient medications and allergies were reviewed. The patient's tolerance of previous anesthesia was also reviewed. The risks and benefits of the procedure and the sedation options and risks were discussed with the patient. All questions were answered, and informed consent was obtained. Prior Anticoagulants: The patient has taken aspirin, last dose was 7 days prior to procedure. ASA Grade Assessment: II - A patient with mild systemic disease. After reviewing the risks and benefits, the patient was deemed in satisfactory condition to undergo the procedure. After I obtained informed consent, the scope was passed under direct vision. Throughout the procedure, the patient's blood pressure, pulse, and oxygen saturations were monitored continuously. The Colonoscope was introduced through the anus and advanced to the cecum, identified by appendiceal orifice and ileocecal valve. The colonoscopy was performed without difficulty. The patient tolerated the procedure well. The quality of the bowel preparation was good. Scope In: 9:03:21 AM Scope Withdrawal Time 0 hours 6 minutes 10 seconds Scope Out: 9:14:33 AM Total Procedure Duration Time 0 hours 11 minutes 12 seconds Findings: Scattered small-mouthed diverticula were found in the sigmoid colon and descending colon. No biopsies or other specimens were collected for this exam. The exam was otherwise without abnormality. Impression: - Diverticulosis in the sigmoid colon and in the descending colon. No specimens collected. - The examination was otherwise normal. Recommendation: - Discharge patient to home. - Resume previous diet. - Continue present medications. - Repeat colonoscopy in 10 years for screening purposes. - Return to primary care physician in 1 week. Procedure Code(s): --- Professional --- G0121, Colorectal cancer screening; colonoscopy on individual not meeting criteria for high risk Diagnosis Code(s): --- Professional --- Z12.11, Encounter for screening for malignant neoplasm of colon K57.30, Diverticulosis of large intestine without perforation or abscess without bleeding CPT copyright 2017 [employer]. All rights reserved. The codes documented in this report are preliminary and upon harpsichord maker review may be revised to meet current compliance requirements. MD Raul Westfall MD 03/30/2020 9:19:44 AM This report has been signed electronically. Number of Addenda: 0 Note Initiated On: 03/30/2020 8:51 AM
--- NOTE | 2020-03-30 09:20 | OP.CCLET_ITS ---
03/30/2020 Marv Brownlee Re : Colonoscopy procedure for Dyan Rose Dear [facility] This procedure was performed on Monday, March 30, 2020. My impressions and recommendations are as follows: Impressions : - Diverticulosis in the sigmoid colon and in the descending colon. No specimens collected. - The examination was otherwise normal. Recommendations : - Discharge patient to home. - Resume previous diet. - Continue present medications. - Repeat colonoscopy in 10 years for screening purposes. - Return to primary care physician in 1 week. My findings are described in the full procedure note, which is enclosed. If I can be of further assistance, please feel free to contact me at Doctor phone number(s): , Fax: [phone], Work: . Sincerely, MD Raul Westfall MD 03/30/2020 9:19:44 AM This report has been signed electronically.
[2020-03-30 09:24] VITALS: BP 102/61; BP 128/74; PULSE 69; RESP 16; O2SAT 96
[2020-03-30 09:29] VITALS: BP 100/66; BP 128/74; PULSE 71; RESP 16; O2SAT 95
[2020-03-30 09:34] VITALS: BP 103/64; BP 128/74; PULSE 63; RESP 16; TEMP 36.7; O2SAT 96
[2020-03-30 10:00] VITALS: BP 128/74
--- NOTE | 2020-03-30 11:32 | HP_ITS ---
Intake Intake Visit Reasons: Family HX & Change in bowel habits Chief Complaint: c-scope consult Marketing Support Coordinator Required: No Is patient in pain?: No Allergies Bleach (Sodium Hypochlorite) Adverse Reaction (Verified 03/14/20 08:45) Other Medications Aspirin [Aspirin EC] 81 mg PO DAILY 05/10/18 [History Confirmed 03/14/20] Lutein 20 mg PO DAILY 05/10/18 [History Confirmed 03/14/20] Multivitamin [Daily Multiple Vitamin] 1 ea PO DAILY 05/10/18 [History Confirmed 03/14/20] Stevenson-3 Fatty Acids/Fish Oil [Stevenson 3 1,000 mg Softgel] 1 ea PO DAILY 05/10/18 [History Confirmed 03/14/20] Red Yeast Rice 600 mg PO DAILY 05/10/18 [History Confirmed 03/14/20] PFSH Medical History Arthritis (Acute) Family history of colon cancer (Acute) History of back problems (Acute) Surgical History History of dilatation and curettage (Acute) History of laparoscopic cholecystectomy (Acute) Family History Father Colon cancer Heart disease Brother Colon cancer Diabetes Sister Cancer bladder cancer Diabetes Mother CVA (cerebral vascular accident) Osteoporosis Social History (Updated 03/14/20 @ 09:[address] Raul Babcock MD) Smoking Status: Never smoker HPI HPI Surgical H&P: Yes HPI: BARTOLOME MAGAÑA, is a 69 F who presents to the office today for Evaluation of endoscopy. Patient has never had a colonoscopy in the past. She has been moving her bowels without difficulty. She has not noticed any melena or hematochezia. She has been having some increased stress since she has moved in the more recent future. She had a father who had colon cancer at 85 and a brother in his early 70s. ROS General General: No weight change, appetite, fatigue, colon cancer, breast cancer or weakness HEENT HEENT: No difficulty swallowing, eye injury, eye surgery, swollen glands or hoarseness Endo Endocrine: No thyroid disease, diabetes mellitus, thyroid cancer, Hair loss, heat intolerance or cold intolerance Skin Skin: No rash or changing moles Breast Breast: No left breast lump, right breast lump, nipple discharge, breast pain, abnormal mammogram, abnormal US or breast enlargement Musc Musculoskeletal: Yes back problems and arthritis; no rheumatoid arthritis, gout or joint pain Cardio Cardiovascular: No murmur, pacemaker, heart disease, atrial fibrillation, high blood pressure, heart attack, heart stent, palpitations, shortness of breat with exertion or chest pain Psych Psychiatric: No depression, anxiety or hearing voices Resp Respiratory: No shortness of breath, No sleep apnea, No cough, No COPD, No asthma, No emphysema, No wheezing Gastro Gastrointestinal: Yes abdominal pain, Yes nausea or vomiting, Yes diarrhea, No constipation, No blood in stool, No acid reflux, No hemorrhoids, No ulcers, No gallbladder problem, No black,tarry stools Wesly Hematologic: No blood thinners, No blood disorders, No bleeding, No anemia, No blood clots Neuro Neurologic: No system reviewed and no additional complaints, except as docu, No as per HPI, No abnormal walking, No abnormal hearing, No abnormal movements, No abnormal speech, No behavioral changes, No burning sensations, No confusion, No seizure-like activity, No unsteadiness, No dizziness, No localized weakness, No frequent falls, No headache(s), No lack of coordination, No loss of vision, No memory loss, No numbness, No other visual disturbances, No radiating pain, No restless legs, No sensory deficit, No fainting, No tingling, No tremor(s), No weakness, No other Exam Const General: no acute distress, well developed, well hydrated Orientation: oriented to person, oriented to place, oriented to time [facility] Head: normocephalic, atraumatic Ears: external ears normal Mouth: moist mucous membranes Eyes Sclera: sclerae normal Pupils: normal by confrontation Neck Neck: no lymphadenopathy noted Neck mass: No Thyroid: thyroid normal, symmetrical Chest Chest palpation & inspection: normal inspection of the chest Breast Palpation: No nipple discharge Resp Effort & Inspection: normal respiratory effort Auscultation: clear to auscultation bilaterally Percussion: percussion normal Cardio Rate: regular rate Rhythm: regular rhythm Heart Sounds: no murmurs GI Palpation: soft, no hepatosplenomegaly, no masses, nontender Rectal Exam: other Other: Rectal exam deferred. Extrem General: normal to inspection, no clubbing, cyanosis or edema Assessment & Plan Problems 1. Encounter for screening colonoscopy Z12.11 Plan I have discussed the above with the patient. I have offered the patient colonoscopy for evaluation. I have explained the risks/benefits of the procedure and described the procedure. I have discussed the risks with the patient, including but not limited to: infection, bleeding, perforation of the GI tract requiring emergency surgery, inability to complete the procedure, injury to any internal organs, complications of anesthesia, etc. - the patient understands and agrees to proceed. I have answered all the patient's questions to the patient's satisfaction and the patient has no further questions. The patient has been given instructions for the colon cleansing preparation. Orders Orders: Colonoscopy Today Coding Level of Care Code Off vis,new,level 3 Diagnoses Encounter for screening colonoscopy Z12.11 COVID (Procedure Consent) Procedure Criteria Procedure Criteria: Yes Elective The surgeon/proceduralist and patient have discussed in detail the risk of exposure to and/or potential harm posed by the COVID-19 virus with having a surgery/procedure at this time versus the risk of? delaying the surgery/procedure. It is not possible to know either the risk of delaying the surgery or procedure or chance of getting an infection with perfect accuracy, but a joint decision was made between the patient and the surgeon/proceduralist ?to proceed at this time with the scheduled surgery/procedure as indicated on the consent form. I have re-examined the patient. There are no clinical changes since date of exam.
== END 2020-03-30 10:10 | disposition home or self-care (01) ==
LOC: EN 07:53 → AC 07:54
PROVIDERS: Anesthesiology; PCP Family Medicine; Referring Provider Family Medicine; Visit Provider Surgery
PROC: 0DJD8ZZ Inspection of Lower Intestinal Tract, Via Natural or Artificial Opening Endoscopic (ICD-10-PCS; CPT 45378; principal; 2020-03-30 09:10)
DX: Z12.11 Encounter for screening for malignant neoplasm of colon (principal); K57.30 Diverticulosis of large intestine without perforation or abscess without bleeding; M06.9 Rheumatoid arthritis, unspecified; Z79.82 Long term (current) use of aspirin; Z80.0 Family history of malignant neoplasm of digestive organs; Z11.59 Encounter for screening for other viral diseases
CPT/HCPCS: G0121; 87635; 94799; J7120; J1610; J2405; U0003

== ENCOUNTER 2021-07-19 13:09 | Emergency (ER) | payer MEDICARE, SELFPAY ==
[2021-07-19 13:10] VITALS: BP 128/85; PULSE 98; RESP 17; TEMP 36.6; O2SAT 94; BMI 21.0
[2021-07-19 13:17] VITALS: BP 128/85; PULSE 98; RESP 17; TEMP 36.6; O2SAT 94
--- NOTE | 2021-07-19 13:56 | EX.ED.DYSGE1 ---
HPI History of Present Illness Chief Complaint: Nausea/Vomiting Informant: patient Narrative Narrative: 71-year-old female arriving to the emergency department out of concerns for dehydration. Patient fell ill last Saturday after she was exposed to her sister who had Covid. She states that on Saturday she began to have more significant headache and yesterday evening began to have nausea and vomiting. She went to see her doctor today who gave her a shot because oral antiemetics do not work for her. She does not know what the shot was. She states that they swabbed her for Covid and said that if it was positive they would could refer her for monoclonal antibody treatment. The patient states that she is very concerned that she is dehydrated because she was not drinking that much before she started vomiting. She denies any shortness of breath. [facility] Medical History (Updated 07/19/21 @ 15:[address] Raul Moran DO) Arthritis Family history of colon cancer History of back problems Home Medications aspirin 81 mg PO DAILY 05/10/18 [History Last Taken Unknown] lutein 20 mg PO DAILY 05/10/18 [History Last Taken Unknown] multivitamin 1 ea PO DAILY 05/10/18 [History Last Taken Unknown] omega-3 fatty acids-fish oil 1 ea PO DAILY 05/10/18 [History Last Taken Unknown] red yeast rice 600 mg PO DAILY 05/10/18 [History Last Taken Unknown] Allergy/AdvReac Type Severity Reaction Status Date / Time Bleach (Sodium Hypochlorite) AdvReac Other Verified 07/19/21 13:10 Family History Father Colon cancer Heart disease Brother Colon cancer Diabetes Sister Cancer bladder cancer Diabetes Mother CVA (cerebral vascular accident) Osteoporosis Surgical History History of dilatation and curettage History of laparoscopic cholecystectomy Social History Smoking Status: Never smoker alcohol intake: never substance use type: does not use ROS ROS ED Constitutional Constitutional ED: Reports chills; Denies weight loss Eyes Eyes: Denies change in vision or diplopia ENT ENT ED: Denies ear pain, rhinorrhea or sore throat Cardiovascular Cardiovascular: Denies chest pain, orthopnea, palpitations or racing heartbeat Respiratory/Chest Respiratory/Chest: Reports cough; Denies dyspnea or orthopnea Gastrointestinal Gastrointestinal: Reports nausea and vomiting; Denies abdominal pain or diarrhea Genitourinary Genitourinary ED: Denies dysuria, hematuria or urinary frequency Musculoskeletal Musculoskeletal: Denies arthralgias or myalgias Integumentary Denies abscess or rash Neurologic Neurologic: Denies headache(s) or weakness Psychiatric Psychiatric: Denies anxiety, depression, suicidal ideation or suicidal thoughts Endocrine Endocrinology: Denies polydipsia, polyphagia or polyuria Allergic/Immunologic Allergic/Immunologic ED: Denies mouth swelling, tongue swelling or urticaria EXAM Physical Exam Const Vital Signs: 07/19/21 13:10 07/19/21 13:17 07/19/21 15:27 Temperature 97.8 F 97.8 F Temperature Source Temporal Temporal Pulse Rate 98 98 Respiratory Rate 17 17 16 Blood Pressure 128/85 H 128/85 H Blood Pressure Mean 99 99 Pulse Ox 94 94 Oxygen Delivery Method Room Air Room Air Positive well nourished and well developed General Appearance ED: well developed HEENT Reports normocephalic, head/scalp atraumatic, TM's clear and moist mucous membranes Negative for trauma Tympanic Membrane ED: Yes TM's clear Eyes PERRL and EOMs intact bilaterally Neck no lymphadenopathy, supple and no JVD Resp normal respiratory effort and clear to auscultation bilaterally Cardio regular rate, regular rhythm and no murmurs GI normal to inspection, nondistended, normoactive bowel sounds and non-tender Palpation: soft Back/Spine no CVA tenderness and normal ROM Extremity normal to inspection General Extremety ED: Negative for edema General Extremity: Negative for edema Neuro oriented x3 and CN's II-XII intact bilaterally Sensorium / Orientation: alert Motor Exam: strength 5/5 throughout Psych mental status grossly normal Mood & Affect: Negative for depressed or tearful Skin no rashes or lesions noted and no wounds MDM MDM MDM Narrative Medical decision making narrative: Patient's blood work is very reassuring. Her creatinine 0.53 and a BUN of 12. Electrolytes are in check. White count is 5.1. She is Covid positive. She received a liter of IV fluids. My interpretation of the chest x-ray is no acute process. Patient is not requiring any supplemental oxygen. Her vital signs appear stable. She qualifies for monoclonal antibodies and I will submit the paperwork to get that done. Return if worsening or concerns Lab Data Attestation: I reviewed the patient's lab results. Labs: Laboratory Results - last 24 hr 07/19/21 07/19/21 13:28 13:28 WBC 5.1 RBC 4.31 Hgb 13.8 Hct 40.5 MCV 94.0 MCH 32.0 MCHC 34.1 RDW Std Deviation 41.5 RDW Coeff of Nadeem 11.9 Plt Count 234 MPV 9.4 Immature Gran % (Auto) 0.200 Neut % (Auto) 66.0 Lymph % (Auto) 27.6 [place] % (Auto) 6.0 Eos % (Auto) 0.0 Baso % (Auto) 0.2 Absolute Neuts (auto) 3.4 Absolute Lymphs (auto) 1.42 Nucleated RBC % 0 Sodium 135 L Potassium 3.5 Chloride 102 Carbon Dioxide 27.0 Anion Gap 6 BUN 12 Creatinine 0.53 L Estim Creat Clear Calc 40.81 Est GFR (MDRD) Af Amer 147 Est GFR (MDRD) Non-Af 121 BUN/Creatinine Ratio 22.7 H Glucose 107 H Calcium 9.1 Total Bilirubin 0.40 AST 19 ALT 20 Alkaline Phosphatase 117 Total Protein 7.2 Albumin 3.1 L Globulin 4.1 Albumin/Globulin Ratio 0.8 L Lipase 61 L Radiography Diagnostic Testing: Clinical Impression(s) from Imaging Studies Chest X-Ray 07/19/21 14:19 IMPRESSION: Hyperinflation. Questionable early right lower lobe infiltrate. Electronically Signed: Dameon Candelaria MD at 15:03 EST , Service support , Discharge Plan Triage Chief Complaint: Nausea/Vomiting ED Provider: Raul Moran Dx/Rx/DC Orders Clinical Impression: COVID-19, Vomiting Instructions: Coronavirus Disease 2019 (COVID-19): Caring for Yourself or Others Prescriptions: No Action multivitamin 1 EACH tablet 1 ea PO DAILY RF: 0 aspirin 81 MG tablet,delayed release (DR/EC) 81 mg PO DAILY RF: 0 lutein 20 MG capsule 20 mg PO DAILY RF: 0 red yeast rice 600 MG capsule 600 mg PO DAILY RF: 0 omega-3 fatty acids-fish oil 1 EACH capsule 1 ea PO DAILY RF: 0 Primary Care Provider: Marv Brownlee Referrals: Marv Brownlee DO [Primary Care Provider] - As Needed Disposition Disposition: Home, Self Care
[2021-07-19] MEDS: 0.9% Normal Saline 1,000 ML 1000 ML IV (13:58)
[2021-07-19 14:10] LABS: Absolute Lymphocyte Count 1.42 X10^3/uL (0.83-4.51); Absolute Neutrophil Count 3.4 X10^3/uL (2.0-7.7); Basophil# 0.01 X10^3/uL; Basophil% 0.2 % (0-1); Hematocrit 40.5 % (37-47); Hemoglobin 13.8 g/dL (12.0-15.0); Lymphocyte # 1.42 X10^3/ul (0.83-4.51); Lymphocyte % 27.6 % (19-41); Mean Corp Hgb Conc 34.1 g/dL (32-36); Mean Platelet Vol. 9.4 fl (6.2-12.0); Monocyte# 0.31 X10^3/uL; NRBC Flagged by Analyzer 0 % (0-5); Neutrophil # 3.39 X10^3/uL (2.7-7.7); Platelet Count 234 K/mm3 (150-450); RBC Distribution Width CV 11.9 % (11.6-14.6); RBC Distribution Width SD 41.5 fl (35.1-43.9); Red Blood Count 4.31 M/mm3 (4.2-5.4); White Blood Count 5.1 K/mm3 (4.4-11.0)
--- NOTE | 2021-07-19 14:19 | RAD_ITS ---
STUDY: X-RAY CHEST REASON FOR EXAM: Female, 71 years old. covid 19 TECHNIQUE: Single AP portable view of the chest. COMPARISON: Comparison is made with prior study dated 05/10/2018. FINDINGS: There is hyperinflation of the lungs consistent with chronic obstructive lung disease (COPD). Questionable focal right lower lobe infiltrate. There is no demonstrated pleural abnormality. Normal size heart. Normal mediastinum and aliyah. Normal visualized pulmonary arteries. Normal visualized aortic arch and descending thoracic aorta. Normal visualized thoracic spine. Normal visualized ribs, clavicles, and shoulders. There is no demonstrated abnormality of the visualized soft tissue structures of the upper abdomen. RAD/Chest 1 View (Portable) IMPRESSION: Hyperinflation. Questionable early right lower lobe infiltrate. Electronically Signed: Dameon Candelaria MD at 15:03 EST , Service support ,
[2021-07-19 14:22] LABS: ALB/GLOB Ratio 0.8 RATIO (0.9-2.4); AST(SGOT) 19 U/L (15-37); Alanine Aminotransfer ALT/SGPT 20 U/L (13-56); Albumin, Serum 3.1 g/dL (3.2-5.0); Alkaline Phosphatase 117 U/L (45-117); Anion Gap 6 (5-15); BUN 12 mg/dL (7-18); BUN/Creat Ratio 22.7 RATIO (10-20); Calcium,Total 9.1 mg/dL (8.5-10.1); Chloride 102 mmol/L (98-107); Creatinine, Serum 0.53 mg/dL (0.55-1.02); EST Glomerular Filtration Rate 121 mL/min (>60); Est Glom Filt Rate - Afr Amer 147 mL/min (>60); Estimated Creatinine Clearance 40.81 ml/min; Globulin 4.1 g/dL (2.2-4.2); Glucose 107 mg/dL (74-106); Lipase 61 U/L (73-393); Potassium 3.5 mmol/L (3.5-5.1); Protein, Total 7.2 g/dL (6.4-8.2); Sodium Level 135 mmol/L (136-145)
[2021-07-19 15:27] VITALS: RESP 16
== END 2021-07-19 16:00 | disposition home or self-care (01) ==
PROVIDERS: Physician Assistant; Emergency Provider Emergency Medicine; PCP Family Medicine
DX: U07.1 COVID-19 (principal); R11.2 Nausea with vomiting, unspecified; M19.90 Unspecified osteoarthritis, unspecified site; Z79.82 Long term (current) use of aspirin
CPT/HCPCS: 71045; 80053; 83690; 85025; 87426; 87635; 96360; 99282; U0005; U0003

== ENCOUNTER 2023-08-23 19:58 | Emergency (ER) | payer MEDICARE, SELFPAY ==
[2023-08-23 19:59] VITALS: BP 129/84; PULSE 85; RESP 15; TEMP 36.7; O2SAT 99; BMI 20.8
--- NOTE | 2023-08-23 20:34 | CT_ITS ---
STUDY: CT CHEST, ABDOMEN T PELVIS WITHOUT CONTRAST REASON FOR EXAM: Female, 73 years old. trauma RADIATION DOSAGE (If Supplied By Facility): CTDIvol = ( 6.76 ) mGy, DLP = ( 563.32 ) mGycm TECHNIQUE: Transaxial imaging was performed without the administration of intravenous contrast material. Multiplanar coronal and sagittal images were reformatted. Individualized dose optimization techniques were used for this CT. COMPARISON: CTA chest dated 05/10/2018. FINDINGS: CHEST There is bronchiectasis with atelectasis involving the lingular lobe. Remainder of the lung parenchyma is normal. There is no demonstrated pleural abnormality. Normal cardiac size. Calcifications within the mediastinum most compatible with him calcified lymph nodes. Normal hilar regions. Normal unenhanced pulmonary arteries. There is atherosclerotic calcification of the aortic arch with tortuosity and elongation of the aortic arch and descending thoracic aorta. Diffuse osteopenia/osteoporosis with minimal wedging of T5, cannot exclude minimal compression fracture, stable. Upper abdomen described indeterminant accompanying CT of the abdomen and pelvis report. ABDOMEN The visualized lung bases are unremarkable. The visualized portions of the heart are within normal limits. Low-attenuation structures within the liver noted, largest seen in the right liver lobe measuring 1 cm most compatible with liver cysts. Otherwise normal liver. There is non-visualization of the gallbladder, consistent with known history of cholecystectomy. Normal spleen. Normal pancreas. Normal bilateral adrenal glands. Normal right kidney. Normal left kidney. Normal visualized stomach. Normal small intestine. There is diverticulosis, with thickening of the colon wall, and pericolonic inflammation changes consistent with acute diverticulitis. There is moderate fecal debris within the colon. There are surgical clips in the region of the appendix consistent with a prior appendectomy. There is diffuse atherosclerotic calcification of the abdominal aorta with elongation and tortuosity, but without a demonstrated aneurysm. Normal inferior vena cava. Normal retroperitoneum. Normal abdominal wall. Diffuse osteopenia/osteoporosis with minor spondylosis of the lumbar spine. No acute fracture or subluxation. PELVIS Normal urinary bladder. There is no demonstrated bladder calculi. Normal visualized small intestine. There are multiple colonic diverticula of the sigmoid colon consistent with chronic diverticulosis. Moderate fecal debris within the colon. There is no pelvic fluid. There is no pelvic lymphadenopathy or mass lesion. The uterus is anteverted with anterior calcification measuring 2.9 cm, likely calcified uterine fibroid. There is uterine atrophy. There is diffuse atherosclerotic calcification of the pelvic arteries. Normal abdominal wall. Diffuse osteopenia/osteoporosis with degenerative disease of bilateral SI joints and hips. CT/CT Chest, Abd, Pelvis WO Cont IMPRESSION: Lingular bronchiectasis and atelectasis. Otherwise no acute cardiopulmonary disease. No evidence of visceral or intra-abdominal injury. Liver cysts, remainder of abdominal viscera unremarkable. No bowel obstruction or focal inflammatory process throughout the gastrointestinal tract. Colonic diverticulosis with moderate fecal debris, cannot exclude mild constipation. Electronically Signed: Katerina Ragsdale MD at 21:35 EST ,
--- NOTE | 2023-08-23 20:35 | EX.ED.GENINJ ---
HPI History of Present Illness Chief Complaint: Fall Informant: patient Onset/Context/Timing Onset: Today Narrative Narrative: Patient presents after a fall down 3 steps at home. She states she fell down 3 steps and then hit her back hard against the edge of the steps. She complains of pain across both her thoracic and lumbar spine. Thoracic pain does wrap around into the left chest. She denies shortness of breath. She did not strike her head and she has no neck pain. [facility] Medical History (Updated 08/23/23 @ 21:[address] Ivette Orlando MD) Arthritis Family history of colon cancer History of back problems Home Medications aspirin 81 mg tablet,delayed release 81 mg PO DAILY 05/10/18 [History Last Taken Unknown] lutein 20 mg capsule 20 mg PO DAILY 05/10/18 [History Last Taken Unknown] multivitamin 1 ea PO DAILY 05/10/18 [History Last Taken Unknown] omega-3 fatty acids-fish oil 300 mg-1,000 mg capsule 1 ea PO DAILY 05/10/18 [History Last Taken Unknown] red yeast rice 600 mg capsule 600 mg PO DAILY 05/10/18 [History Last Taken Unknown] Allergy/AdvReac Type Severity Reaction Status Date / Time Bleach (Sodium Hypochlorite) AdvReac THROAT Verified 08/23/23 20:03 SWELLING Family History Father Colon cancer Heart disease Brother Colon cancer Diabetes Sister Cancer bladder cancer Diabetes Mother CVA (cerebral vascular accident) Osteoporosis Surgical History History of dilatation and curettage History of laparoscopic cholecystectomy Social History Smoking Status: Never smoker alcohol intake: never substance use type: does not use ROS ROS ED Constitutional Constitutional ED: Denies chills or fever(s) Eyes Eyes: Denies change in vision ENT ENT ED: Denies rhinorrhea or sore throat Cardiovascular Cardiovascular: Reports chest pain; Denies palpitations Respiratory/Chest Respiratory/Chest: Denies cough or dyspnea Gastrointestinal Gastrointestinal: Denies abdominal pain, nausea or vomiting Genitourinary Genitourinary ED: Denies dysuria Musculoskeletal Musculoskeletal: Reports back pain; Denies extremity pain or neck pain Integumentary Denies Abrasions or rash Neurologic Neurologic: Denies headache(s), paresthesias or weakness Psychiatric Psychiatric: Denies anxiety or depression Allergic/Immunologic Allergic/Immunologic ED: Denies lip swelling or urticaria EXAM Physical Exam Const Vital Signs: 08/23/23 19:59 08/23/23 20:21 Temperature 98.1 F Temperature Source Temporal Pulse Rate 85 Respiratory Rate 15 Respiratory Effort Normal Respiratory Depth Normal Respiratory Pattern Normal Blood Pressure 129/84 H Blood Pressure Mean 99 Pulse Ox 99 Oxygen Delivery Method Room Air Room Air Positive well nourished and well developed General Appearance ED: well developed Eyes EOMs intact bilaterally Chest Wall inspection of chest normal and palpation of chest normal Resp normal respiratory effort and clear to auscultation bilaterally Cardio regular rhythm Rate: regular rate GI non-tender Palpation: soft Back/Spine Back/Spine Narrative: Tenderness in the left thoracic paraspinal muscles as well as in the bilateral lumbar paraspinal muscles. Small areas of erythema over the mid thoracic and mid lumbar spine with no true full abrasions or lacerations. No C-spine tenderness. Extremity normal to inspection Neuro oriented x3 and moves all extremities Sensorium / Orientation: alert Motor Exam: strength 5/5 throughout Psych mental status grossly normal MDM MDM MDM Narrative Medical decision making narrative: Patient given Tylenol for pain. CT of the chest, abdomen, and pelvis obtained to evaluate for any bony injury, hematoma. Radiography Diagnostic Testing: Clinical Impression(s) from Imaging Studies Chest/Abdomen/Pelvis CT 08/23/23 20:34 IMPRESSION: Lingular bronchiectasis and atelectasis. Otherwise no acute cardiopulmonary disease. No evidence of visceral or intra-abdominal injury. Liver cysts, remainder of abdominal viscera unremarkable. No bowel obstruction or focal inflammatory process throughout the gastrointestinal tract. Colonic diverticulosis with moderate fecal debris, cannot exclude mild constipation. Electronically Signed: Katerina Ragsdale MD at 21:35 EST , Treatment and Re-Evaluation Narrative: CT scan of the chest, abdomen, and pelvis reveals some mild atelectasis but no acute bony or organ injury from her trauma. On repeat evaluation she does feel improved after Tylenol. She will continue this at home as needed. Return instructions provided. Discharge Plan Triage Chief Complaint: Fall ED Provider: Ivette Orlando Dx/Rx/DC Orders Clinical Impression: Back contusion, Fall Instructions: ED Back Contusion, ED Mechanical Fall Prescriptions: No Action multivitamin 1 EACH tablet 1 ea PO DAILY aspirin 81 MG tablet,delayed release (DR/EC) 81 mg PO DAILY lutein 20 MG capsule 20 mg PO DAILY red yeast rice 600 MG capsule 600 mg PO DAILY omega-3 fatty acids-fish oil 1 EACH capsule 1 ea PO DAILY Primary Care Provider: Marv Brownlee Referrals: Marv Brownlee DO [Primary Care Provider] - As Needed Disposition Disposition: Home, Self Care
[2023-08-23] MEDS: Acetaminophen 325 MG Tablet 650 MG PO (21:01)
[2023-08-23 21:45] VITALS: BP 118/74; PULSE 68; RESP 16; O2SAT 99
== END 2023-08-23 21:48 | disposition home or self-care (01) ==
PROVIDERS: Emergency Provider Emergency Medicine; PCP Family Medicine; Visit Provider Emergency Medicine
DX: S20.224A Contusion of middle back wall of thorax, initial encounter (principal); S30.0XXA Contusion of lower back and pelvis, initial encounter; W10.9XXA Fall (on) (from) unspecified stairs and steps, initial encounter; Y92.009 Unspecified place in unspecified non-institutional (private) residence as the place of occurrence of the external cause; Z79.82 Long term (current) use of aspirin; Z79.899 Other long term (current) drug therapy
CPT/HCPCS: 71250; 74176; 99282

== ENCOUNTER 2025-05-17 06:39 | Day surgery (SDC) | payer MEDICARE, SELFPAY ==
[2025-05-17] VITALS (8 sets, daily range): BP systolic 92–124; BP diastolic 67–75; PULSE 54–70; RESP 12–16; TEMP 36.2–36.3; O2SAT 98–100; BMI 19.3
[2025-05-17] MEDS: Lactated Ringers 1,000 ML 15 ML IV (07:07)
== END 2025-05-17 09:13 | disposition home or self-care (01) ==
LOC: EN 06:40 → AC 06:42
PROVIDERS: PCP Family Medicine; Referring Provider Family Medicine; Visit Provider Surgery
PROC: 0DJD8ZZ Inspection of Lower Intestinal Tract, Via Natural or Artificial Opening Endoscopic (ICD-10-PCS; CPT 45378; principal; 2025-05-17 07:55)
DX: K62.5 Hemorrhage of anus and rectum (principal); K57.30 Diverticulosis of large intestine without perforation or abscess without bleeding; Z80.0 Family history of malignant neoplasm of digestive organs; Z90.49 Acquired absence of other specified parts of digestive tract
CPT/HCPCS: 45378; J2405